=== PATIENT | female | born 1985 | race Caucasian/White ===

== ENCOUNTER 2022-12-24 19:23 | Emergency (ER) | payer OTHER, SELFPAY ==
[2022-12-24] VITALS (8 sets, daily range): BP systolic 97–156; BP diastolic 60–94; PULSE 82–110; RESP 22; O2SAT 95–99; BMI 42.3
--- NOTE | 2022-12-24 21:16 | ED.GENADULT ---
HPI - General Adult General Chief complaint: Back Injury/Pain Stated complaint: 7 months , sciatic nerve pain Time Seen by Provider: 12/24/22 21:06 History of Present Illness HPI narrative: 37 year old woman accompanied by family with concern of back pain. History of right-sided sciatica with ?back going out? multiple times in the last . This sciatica though lasted briefly early on in . Has been having some back aches during this now at approximately 29 weeks. Over the last 3 days though is now having shooting sharp pain down the right buttock and posterior right thigh about 2/3 of the thigh. wondering if a muscle relaxer would be helpful. has been doing her stretches as instructed last time. Related Data Home Medications Medication Instructions Recorded Confirmed aspirin 81 mg capsule 81 mg PO DAILY 12/24/22 12/24/22 citalopram 40 mg tablet 40 mg PO DAILY 12/24/22 12/24/22 prenat.vits,steve,[id number] .ROUTE 12/24/22 Allergies Allergy/AdvReac Type Severity Reaction Status Date / Time cefaclor [From Ceclor] Allergy Mild Hives Verified 12/24/22 19:40 ciprofloxacin [From Cipro] Allergy Mild Hives Verified 12/24/22 19:40 Sulfa (Sulfonamide Allergy Mild Hives Verified 12/24/22 19:40 Antibiotics) Review of Systems Status of ROS: Reports: 6 or more systems reviewed and unremarkable except as noted in History and below [facility] Social History Smoking Status: Former smoker Do you use any of these nicotine containing products: None Second hand tobacco smoke exposure: No How often do you have a drink containing alcohol: never AUDIT-C Alcohol total score: 0 Non-prescribed substance use: denies use Exam Narrative: Exam Narrative: pleasant. nad. breathing easily. lying slightly rotated to left side. quite uncomfortable with transitions. skin is warm and dry without indication of trauma. without midline back pain. no clear SI pain. a little sore to palpation on the mid right buttock and posterior thigh. somewhat positive SLR good strength to resisted dorsiflexion and plantar flexion at the ankle. well perfused. neg braxton's and hip compression. Const: Vital Signs, click to edit/add: Vital Signs - 24 hr 12/24/22 19:33 12/24/22 19:47 12/24/22 19:48 Pulse Rate 89 96 Pulse Rate [Pulse Oximeter] 110 H Respiratory Rate 22 Blood Pressure 134/94 H Blood Pressure [Le ft Upper Arm] 156/81 H Pulse Oximetry 98 98 99 Oxygen Delivery Me thod Room Air 12/24/22 20:00 12/24/22 20:02 12/24/22 20:15 Pulse Rate 89 88 86 Pulse Rate [Pulse Oximeter] Respiratory Rate Blood Pressure 114/67 Blood Pressure [Le ft Upper Arm] Pulse Oximetry 96 97 96 Oxygen Delivery Me thod 12/24/22 20:22 12/24/22 20:23 Pulse Rate 86 82 Pulse Rate [Pulse Oximeter] Respiratory Rate Blood Pressure 97/60 Blood Pressure [Le ft Upper Arm] Pulse Oximetry 97 95 Oxygen Delivery Me thod Documenting provider has reviewed patient's vital signs: yes Course Vital Signs Vital signs: Initial Vital Signs Temperature Source Temporal Artery Scan 12/24/22 19:33 Pulse Rate 110 H 12/24/22 19:33 Respiratory Rate 22 12/24/22 19:33 Blood Pressure 156/81 H 12/24/22 19:33 Blood Pressure Mean 106 H 12/24/22 19:33 Blood Pressure Position Sitting 12/24/22 19:33 Pulse Oximetry 98 12/24/22 19:33 Oxygen Delivery Method Room Air 12/24/22 19:33 Vital Signs Pulse Rate 110 H 12/24/22 19:33 Respiratory Rate 22 12/24/22 19:33 Blood Pressure 156/81 H 12/24/22 19:33 Pulse Oximetry 98 12/24/22 19:33 Oxygen Delivery Method Room Air 12/24/22 19:33 Pulse Rate 82 12/24/22 20:23 Respiratory Rate 22 12/24/22 19:33 Blood Pressure 97/60 12/24/22 20:22 Pulse Oximetry 95 12/24/22 20:23 Oxygen Delivery Method Room Air 12/24/22 19:33 Medical Decision Making MDM Narrative Medical decision making narrative: appears to have typical sciatic nerve bundle distribution of pain. no trauma. in the setting of I also think this more likely than lumbar spine in origin. did speak to ob oncall who approves plan/prescribed medications. at a minimum would benefit from a course of prednisone. see patient discharge plan. Discharge Plan Discharge Clinical Impression: Low back pain, Right sciatic nerve pain Patient Disposition: Home w/ Parent or Adult Condition: Stable Instructions: Sciatica (ED) Additional Instructions: Keep doing your sciatic stretches. Take the prednisone as 60 mg daily for 2 days then 40 mg daily for 4 days then 20 mg daily for 3 days Stay well-hydrated. Focus on fiber intake especially if taking opiate and maybe with addition of senna 1 - 2 times to stimulate bowels. Prednisone, [place], Flexeril from [facility]. Activity Level: No Restrictions Discharge Diet: Regular Prescriptions: No Action citalopram 40 mg tablet 40 mg PO DAILY prenat.vits,steve,[id number] .ROUTE aspirin 81 mg capsule 81 mg PO DAILY Follow Up/Referrals: Provider,Not a Local [Primary Care Provider] - Stand Alone Forms: [employer] Info Instructions
--- NOTE | 2022-12-24 21:26 | PC.OBNST ---
NST Note NST Note Start: 12/24/22 21:23 Freq: ONCE Status: Active Protocol: Document 12/24/22 21:24 [facility] (Rec: 12/24/22 21:26 [facility] [id number]) NST Note 2 Para (# of births) 1 EDC [birth year] Gestational Age In Weeks & Days 29 Weeks & 4 Days High Risk Factors History of Labor/ Delivery Patient Presented with Complaint(s) of Other If Pain, describe location Lower back, down right leg Other Complaints Sciatic pain Reactive Yes Appropriate for Gestational Age Yes RN Tiffani Harper, RN Date 12/24/22 Reactive Yes Appropriate for Gestational Age Yes HEMANT Wilburn RNC Date 12/24/22 OB NST charge Yes Complete NST Note via Write Note Yes The provider's electronic signature indicates the NST is reactive/appropriate for gestational age. *Note to provider: If an addendum is required, open the patient's chart and click on the note under the Nurse/Allied Health tab.
== END 2022-12-24 22:05 | disposition home or self-care (01) ==
PROVIDERS: Emergency Provider Family Medicine
DX: M54.50 Low back pain, unspecified (principal); M54.31 Sciatica, right side; Z3A.29 29 weeks gestation of pregnancy
CPT/HCPCS: 59025; 99283

== ENCOUNTER 2024-09-04 19:29 | Emergency (ER) | payer OTHER, SELFPAY ==
--- NOTE | 2024-09-04 19:41 | CRLHL7_ITS ---
For Patients: As a result of the Cures Act, medical imaging exams and procedure reports are released immediately into your electronic medical record. You may view this report before your referring provider. If you have questions, please contact your health care provider. Indication: Injury. Technique: Right great toe 3 views. Comparison: None. Findings/Impression: Bones: Alignment is normal. No fractures or bone lesions. No sign of acute injury. Joint spaces: Unremarkable. Soft tissues: Unremarkable. Dictated by Del Clark MD @ 09/04/2024 8:44:10 PM (Electronically Signed)
[2024-09-04 19:42] VITALS: BP 151/89; PULSE 80; RESP 16; TEMP 36.6; O2SAT 98; BMI 39.2
--- NOTE | 2024-09-04 20:33 | ED.LOWEXIN ---
HPI - Extremity Injury (Lower) General Date Seen: 09/04/24 Chief Complaint: Extremity Pain/Injury, Lower Stated Complaint: R big toe pain Time Seen by Provider: 09/04/24 19:44 Source: patient Mode of arrival: ambulatory Limitations: no limitations History of Present Illness HPI Narrative: Patient is a 39-year-old female presenting to the emergency department for right great toe pain. States about 19:00 she dropped a wound been shown to it. States there is swelling and bruising to it. States initially the toe was throbbing but that has since improved. States the tip of her toe feels numb at this time. Denies any other injuries. No other concerns noted. was able ambulate. Related Data Home Medications ?Medication ?Instructions ?Recorded ?Confirmed aspirin 81 mg capsule 81 mg PO DAILY 12/24/22 01/17/23 citalopram 40 mg tablet 40 mg PO DAILY 12/24/22 01/17/23 prenat.vits,steve,[id number] .Route 12/24/22 cyclobenzaprine 10 mg tablet 10 mg PO 3XD 01/17/23 01/17/23 hydrocodone 5 mg-acetaminophen 325 tab PO 01/17/23 mg tablet prednisone 20 mg tablet 20 mg PO BID 01/17/23 01/17/23 Previous Rx's ?Medication ?Instructions ?Recorded cyclobenzaprine 10 mg tablet 10 mg PO TID PRN muscle spasm #30 01/17/23 tabs hydrocodone 5 mg-acetaminophen 325 1 tab PO 3XD PRN Pain #20 tabs 01/17/23 mg tablet Allergies Allergy/AdvReac Type Severity Reaction Status Date / Time cefaclor (From Ceclor) Allergy Mild Hives Verified 12/24/22 19:40 ciprofloxacin (From Cipro) Allergy Mild Hives Verified 12/24/22 19:40 Sulfa (Sulfonamide Allergy Mild Hives Verified 12/24/22 19:40 Antibiotics) Review of Systems Narrative: Pertinent systems reviewed and were negative unless stated in HPI PFSH PFSH Social History Smoking Status: Former smoker Do you use any of these nicotine containing products: None Second hand tobacco smoke exposure: No How often do you have a drink containing alcohol: never AUDIT-C Alcohol total score: 0 Non-prescribed substance use: denies use Exam Narrative: Exam Narrative: Const: Well-nourished, Well-developed, in mild distress Eyes: PERRL, no conjunctival injection, and symmetrical lids HENT: Atraumatic external nose and ears. Moist mucous membranes. MSK: Mild swelling noted to the base of the right great toe with tenderness noted at that area too. Some bruising seen. Is able to move the toe. No pain noted to the rest of toes or foot. Skin: Warm, Dry. No rashes or lesions. Neuro: Normal Muscle tone, No focal neurological deficits. Psych: Awake, Alert, & Oriented x3. Appropriate mood and affect. Const: Vital Signs, click to edit/add: Vital Signs - 24 hr 09/04/24 19:42 Temperature 97.8 F Pulse Rate [Pulse Oximeter] 80 Respiratory Rate 16 Blood Pressure [Ri t Upper Arm] 151/89 H Pulse Oximetry 98 Oxygen Delivery Me thod Room Air Course Vital Signs Vital signs: Initial Vital Signs Temperature 97.8 F 09/04/24 19:42 Temperature Source Temporal Artery Scan 09/04/24 19:42 Pulse Rate 80 09/04/24 19:42 Respiratory Rate 16 09/04/24 19:42 Blood Pressure 151/89 H 09/04/24 19:42 Blood Pressure Mean 109 H 09/04/24 19:42 Blood Pressure Position Sitting 09/04/24 19:42 Pulse Oximetry 98 09/04/24 19:42 Oxygen Delivery Method Room Air 09/04/24 19:42 Vital Signs Temperature 97.8 F 09/04/24 19:42 Pulse Rate 80 09/04/24 19:42 Respiratory Rate 16 09/04/24 19:42 Blood Pressure 151/89 H 09/04/24 19:42 Pulse Oximetry 98 09/04/24 19:42 Oxygen Delivery Method Room Air 09/04/24 19:42 Temperature 97.8 F 09/04/24 19:42 Pulse Rate 80 09/04/24 19:42 Respiratory Rate 16 09/04/24 19:42 Blood Pressure 151/89 H 09/04/24 19:42 Pulse Oximetry 98 09/04/24 19:42 Oxygen Delivery Method Room Air 09/04/24 19:42 MDM - Extremity Injury (Lower) MDM Narrative Medical decision making narrative: Patient is a 39-year-old female presenting for right great toe pain. Will do an x-ray of the toe to look for signs of fractures. X-rays reviewed by myself and the radiologist shows no acute fractures. He be discharged. She is agreeable to this plan. Imaging Data Right great toe x-ray: Attestation: I have reviewed the pertinent imaging results. Radiologist's impression: Bones: Alignment is normal. No fractures or bone lesions. No sign of acute injury. Joint spaces: Unremarkable. Soft tissues: Unremarkable. Dictated by Del Clark MD @ 09/04/2024 8:44:10 PM Discharge Plan Discharge Clinical Impression: Contusion of toe Qualifiers: Encounter type: initial encounter Toe: great toe Damage to nail status: without damage Laterality: right Qualified Code(s): S90.111A - Contusion of right great toe without damage to nail, initial encounter Patient Disposition: Home, Self-Care Condition: Stable Instructions: Bone Bruise (ED) Additional Instructions: Take Tylenol and ibuprofen for pain. Return to emergency department for new or worsening symptoms. Prescriptions: No Action citalopram 40 mg tablet 40 mg PO DAILY prenat.vits,steve,[id number] .Route aspirin 81 mg capsule 81 mg PO DAILY cyclobenzaprine 10 mg tablet 10 mg PO 3XD hydrocodone-acetaminophen 5-325 mg tablet PO prednisone 20 mg tablet 20 mg PO BID hydrocodone-acetaminophen 5-325 mg Tablet 1 tab PO 3XD PRN (Reason: Pain) Qty: 20 0RF cyclobenzaprine 10 mg tablet 10 mg PO TID PRN (Reason: muscle spasm) Qty: 30 0RF Follow Up/Referrals: Sumi Ely MD [Primary Care Provider] - Stand Alone Forms: [employer] Info Instructions
== END 2024-09-04 20:57 | disposition home or self-care (01) ==
PROVIDERS: Emergency Provider Student in an Organized Health Care Education/Training Program; PCP Obstetrics & Gynecology
DX: S90.111A Contusion of right great toe without damage to nail, initial encounter (principal)
CPT/HCPCS: 73660; 99283

== ENCOUNTER 2025-07-21 19:08 | Emergency (ER) | payer OTHER, SELFPAY ==
--- OUTSIDE RECORDS SUMMARY | 2025-06-18 08:20 | XMS_ITS | Encounter Summary ---
Author Organization [facility] Address [address] [place] [address] Care Team Providers Care Licensing Court Magistrate Name Role Phone Loulou Martin APRN, CNP Primary Care Provid er Reason for Referral * Consult/Transfer Care (Routine) - New Request Specialty Diagnoses / Procedures Referred By Eileen monzon Referred To Contact Diagnoses Pain of right forearm Loulou Martin APRN, CNP [address] [place] [address] Phone: tel: fax: Referral ID Status Reason Start Date Expiration Date V isits Requested Visits Authorized [id number] New Request 06/18/2025 09/17/2026 1 1 Scheduling Instructions Your clinician has recommended an appointment with [facility]. You can quickly schedule your appointment by signing in to your online account at [email or web address] or through the text message you may have received. You can also make an appointment by calling [phone]. We also suggest you call your health insurance provider about your benefits and coverage for this appointment. Question Answer Appointment Urgency? Non-Urgent The patient should be seen by: Orthopaedic Non-Surgeon * Procedure/Equipment (Routine) - Incomplete Specialty Diagnoses / Procedures Referred By Eileen monzon Referred To Contact Diagnoses Encounter for screening mammogram for malignant neoplasm of breast Procedures MM Mammogram Screening Bilat W CAD Loulou Martin APRN, CNP [address] [place] [address] Phone: tel: fax: Referral ID Status Reason Start Date Expiration Date V isits Requested Visits Authorized [id number] Incomplete 06/18/2025 09/17/2026 1 1 * Consult/Transfer Care (Routine) - Closed Specialty Diagnoses / Procedures Referred By Contac t Referred To Contact Diagnoses Snoring Witnessed episode of apnea Loulou Martin APRN, CNP [address] [place] [address] Phone: tel: fax: Referral ID Status Reason Start Date Expiration Date Visits Re quested Visits Authorized [id number] Closed 06/18/2025 09/17/2026 1 1 Scheduling Instructions Your clinician has recommended an appointment with [facility]. This is not a sleep study order and must first be reviewed by a sleep specialist to determine the next steps. The review process looks at multiple factors including your insurance requirements, personal health history, and [place] [employer] guidelines. This order will be reviewed within 1 business day and sent to scheduling for one of the following appointments: - Consultation/Office Visit with a Sleep Medicine Specialist - Consultation/Office Visit with an Insomnia Specialist - Portable/Home Sleep Test If you do not hear from our scheduling staff within the next 7 days, please contact us at [phone] and select option 1. Question Answer Appointment Urgency Non-Urgent Sleep Service Requested Sleep Test Other Pertinent History None Previously Diagnosed SREEKANTH No Signs/Symptoms of SREEKANTH Excessive Daytime Sleepiness, Witnessed Episodes of Apnea, Habitual or Disruptive Snoring Comments Comments: Age/Sex: 39 y.o. / female Height: 01/09/23 : 5' 7 (1.702 m) Weight: 04/10/24 : 260 lb (117.9 kg) BMI: Estimated body mass index is 40.72 kg/m as calculated from the following: Height as of 01/09/23: 5' 7 (1.702 m). Weight as of 04/10/24: 260 lb (117.9 kg). Reason for Visit * Reason Comments Annual Exam Other Skin tag under bra l ine. Concerns about low blood sugar during the day (noted some dizziness, lightheadedness, and sweating). Noted snoring and reported that pt might stop breathing at night. Right arm soreness intermittently. Encounter Details Date Type Department Care Team (Late st Contact Info) Description 06/18/2025 9:20 AM CDT Office Visit [facility] [address] [place] [address] Loulou Martin APRN, CNP [address] [facility] [place] [address] Well woman exam with routine gynecological exam (Primary Dx); PATRICIA (generalized anxiety disorder) (HRC); Major depression in remission (HRC); Reactive airway disease with acute exacerbation, unspecified asthma severity, unspecified whether persistent (HRC); Screening for malignant neoplasm of cervix; Special screening examination for human papillomavirus (HPV); Encounter for screening mammogram for malignant neoplasm of breast; Screening, anemia, deficiency, iron; Screening for diabetes mellitus; Encounter for screening for lipoid disorders; Snoring; Witnessed episode of apnea; Pain of right forearm Social History Tobacco Use Types Packs/Day Years Used Date Smoking Tobacco: Former Cigarettes 0.2 3 1 09/20/2017 - 07/21/2021 Smokeless Tobacco: Never Tobacco Cessation:Counseling Given: Not Answered Alcohol Use Standard Drinks/Week Comments No 0 (1 standard drink = 0.6 oz pure alcohol) Sober since 11/2015. Adm 05/20/15 FVR for acute alcohol intoxication, multiple job losses, DUIs PHQ-2 Answer Date Recorded PHQ-2 Score 0 06/18/2025 Hunger Vital Sign Answer Date Recorded Within the past 12 months, y ou worried that your food would run out before you got the money to buy more. Sometimes true Within the past 12 months, t he food you bought just didn't last and you didn't have money to get more. Never true 06/2025 PRAPARE - Transportation Answer Date Re corded In the past 12 months, has l ack of transportation kept you from medical appointments or from getting medications? No 06/09 In the past 12 months, has l ack of transportation kept you from meetings, work, or from getting things needed for daily living? No 06/18/2025 Housing Stability Vital Sign Answer Damir e Recorded In the last 12 months, was t here a time when you were not able to pay the mortgage or rent on time? Yes 06/18/2025 In the past 12 months, how m any times have you moved where you were living? 0 06/18/2025 At any time in the past 12 m [facility], were you homeless or living in a group home (including now)? 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 Not on file Not on file N ot on file [employer] Not on file Not on file Not on file documented as of this encounter Last Filed Vital Signs Vital Sign Reading Time Taken Comments Blood Pressure 121/85 06/18/2025 9:08 AM CDT Pulse 74 06/18/2025 9:08 AM CDT Temperature - - Respiratory Rate - - Oxygen Saturation - - Inhaled Oxygen Concentration - - Weight 112.4 kg (247 lb 12.8 oz) 06/18/2025 8:58 AM CDT Height 170.2 cm (5' 7) 06/18/2025 8:58 AM CDT Body Mass Index 38.81 06/18/2025 8:58 AM CDT documented in this encounter Patient Instructions * Patient Instructions* Loulou Martin, LABOR OPERATOR, MARINE CONSULTANT - 06/18/2025 9:20 AM CDT VISIT SUMMARY: During your visit, we addressed your concerns about snoring, blood sugar fluctuations, right arm soreness, and a skin tag under your brow. We also performed routine screenings and discussed your current medications. YOUR PLAN: CERVICAL CANCER SCREENING AND HPV SCREENING: You are due for cervical cancer screening as you are approaching [age]. -We performed the cervical cancer screening today. Please review the results on your online account. ROUTINE GYNECOLOGICAL EXAMINATION: A routine gynecological examination is part of your preventativecare. -We completed your routine gynecological examination today. SUSPECTED SLEEP APNEA: You have reported loud snoring, possible apneic episodes, and daytime sleepiness, which began after becoming sober. -We have ordered a sleep study for you. -You are referred to the sleep department for further evaluation. SYMPTOMS OF HYPOGLYCEMIA (NOT DIABETES): You experience symptoms of low blood sugar if you do not eat for extended periods. Your current diet may lack sufficient protein and fat. -We will check your blood work for anemia, blood sugar, and cholesterol. -Include more protein and fat in your meals and snacks. -Try to eat every three hours to maintain stable blood sugar levels. RIGHT ARM PAIN, POSSIBLE BICEPS TENDON INJURY: You have intermittent right arm soreness, possibly due to a biceps tendon injury. -You are referred to orthopedics for evaluation of a possible biceps tendon injury. SKIN TAG UNDER BROW: You have a skin tag under your brow line that causes discomfort. -We will evaluate the skin tag and determine the appropriate removal method. UNSPECIFIED ASTHMA WITH ACUTE EXACERBATION: You received a pneumonia vaccination due to your asthmatic airway. -No additional action is needed at this time. GENERALIZED ANXIETY DISORDER AND DEPRESSION IN REMISSION: Your generalized anxiety disorder and major depression are in remission and well-managed on sertraline 50 mg daily. -Continue taking sertraline 50 mg daily. documented in this encounter Progress Notes * Loulou Martin APRN, CNP - 06/18/2025 9:20 AM CDT Amalia Allison [id number] SUBJECTIVE: AMALIA ALLISON is a 39 y.o. female who presents to the clinic for a routine physical exam. She is , with menarche at age 13. Menses are absent on Mirena IUD. She is sexually active. No concerns about STI's at this time. She denies dyspareunia, unusual vaginal discharge, or pelvic pain. Lastpap 2020. Denies history of abnormal paps. Patient reports that anxiety and depression are currently well managed on sertraline 50mg. She is happy to report that she has been sober for 9 years. She has a history of severe alcohol dependence, requiring admission to the hospital for various alcohol-related injuries and health problems. She has several additional concerns today. History of Present Illness She has a skin tag under her brow line that frequently catches and causes discomfort. She has concerns about snoring and potential sleep apnea. Her has observed that she snores loudly and appears to stop breathing during sleep. This issue began after she became sober, whereas previously she was a quiet sleeper. She experiences daytime sleepiness, often feeling tired and ableto nap easily, which she attributes to getting only five to six hours of sleep per night due to herbusy schedule with two young children at home. She has noticed fluctuations in her blood sugar levels, particularly feeling weak and shaky if she does not eat within five to six hours after breakfast. She typically eats a bagel with cream cheese in the morning and tries to bring snacks like trail mix, protein bars, and fruit snacks to work. Sheexperiences symptoms of low blood sugar, such as sweating and weakness, which improve after eating. She reports intermittent right arm soreness, which she attributes to holding her [id number] child. She recalls a specific incident about four months ago when her arm became very sore and developed a hard 'Gen' bump, suggesting a possible muscle strain or injury. The soreness persists, especially when holding her child, who weighs 30 pounds. PAST MEDICAL HISTORY: Past Medical History[1] PAST SURGICAL HISTORY: Past Surgical History[2] DRUG ABUSE WORKER HISTORY: OB History 2 Para 2 Term 1 1 AB 0 Living 2 SAB 0 IAB 0 Ectopic 0 Multiple Live Births 2 No LMP recorded (lmp unknown). (Menstrual status: IUD). MEDICATIONS: Outpatient Medications Prior to Visit Medication Sig ALBUterol sulfate HFA (VENTOLIN HFA) 108 (90 Base) MCG/ACT inhaler Inhale 1-2 Puffs every 4 hours as needed for Wheezing. (Patient not taking: Reported on 06/18/2025) levonorgestrel (MIRENA) 20 MCG/DAY IUD 1 Each by Intrauterine route continuous. multivitamin (THERAGRAN) tablet Take 1 Tablet by mouth daily. sertraline (ZOLOFT) 50 MG tablet TAKE 1 TABLET BY MOUTH EVERY DAY No facility-administered medications prior to visit. ALLERGIES: Allergies Allergen Reactions Cefaclor Hives HIVES: Hives, Tolerated ceftriaxone 04/23/20: ok to use 3rd generation cephalosporins or higher. Should have plenty of options in penicillin family for coverage. Ciprofloxacin Hives Sulfa Antibiotics Hives HIVES: Hives, FAMILY HISTORY: Family History[3] SOCIAL HISTORY: Social History Social History Narrative The patient is engaged. 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 Has two boys and 4 step-kids,. Complete ROS negative with any exceptions listed: above. OBJECTIVE VITALS: BP 121/85 (BP Location: Left Arm, BP Cuff Size: Regular) Pulse 74 Ht 5' 7 (1.702 m) Wt 247 lb 12.8 oz (112.4 kg) LMP (LMP Unknown) No BMI 38.81 kg/m?? CONSTITUTIONAL; Well-developed, well nourished female, in NAD. HEENT: Head AT/NC. External ears normal. TMs clear, bony landmarks visible. Nares patent, turbinates without lesions or drainage. Oropharynx non- erythematous. Uvula midline. Dentition in good condition. NECK: Supple, thyroid without enlargement or nodules. No cervical lymphadenopathy. LUNGS: Symmetrical expansion, CTA in all louis bilaterally. HEART: Regular rate and rhythm. No murmurs. ABDOMEN: Soft, non-tender, no guarding or masses. No HSM. EXTREMITIES: Subtle Gen deformity right forearm. No edema. Strong and equal peripheral pulses SKIN: Inferior to left breast, skin-colored pedunculated lesion measuring approx 2mm. No obvious rashes or suspicious lesions. PSYCH: Well-oriented. Appropriate mood and affect. NEURO: Speech and gait are normal. BREASTS: Large size, symmetrical. No nipple discharge. No palpable masses, tenderness, lesions, dimpling, or retractions. LYMPH: No axillary lymphadenopathy. GENITALIA: Labia without lesions, normal hair distribution. Vaginal vault pink with clear discharge. No cervical lesions. No CMT. IUD strings not visible. No adnexal masses or tenderness. Uterus anteverted. RECTAL: No external hemorrhoids noted. PROCEDURE: Verbal informed consent. Lesion frozen with three cycles of liquid nitrogen using 15 second freeze-thaw time. Patient tolerated the procedure without complication. ASSESSMENT/PLAN: Assessment & Plan Well woman exam with routine gynecological exam - Labs: Hgb, Glucose, lipid profile - Cervical Cancer Screening: Due. Collected. - Influenza ccIIV3 6 months+ (FLUCELVAX) - PCV20 ([id number]) - Mammogram: Due at 40, referred. - Follow up yearly. PATRICIA (generalized anxiety disorder) (HRC)/Major depression in remission (HRC) - sertraline (ZOLOFT) 50 MG tablet; Take 1 Tablet (50 mg) by mouth daily. Reactive airway disease with acute exacerbation, unspecified asthma severity, unspecified whether persistent (HRC): Stable Suspected sleep apnea Reports loud snoring and possible apneic episodes with daytime sleepiness. Symptoms began after becoming sober. - Order sleep study. - Refer to sleep department for further evaluation. Symptoms of hypoglycemia (not diabetes) Experiences hypoglycemic symptoms if not eating for extended periods. Symptoms improve with food intake. Current diet may lack sufficient protein and fat. - Check blood work for anemia, blood sugar, and cholesterol. - Advise to include protein and fat in meals and snacks. - Recommend eating every three hours to maintain stable blood sugar levels. Right arm pain, possible biceps tendon injury Intermittent right arm soreness with 'Gen' deformity, possibly due to biceps tendon injury. - Refer to orthopedics for evaluation of possible biceps tendon injury. Skin tag under breast - Lesion frozen, see Procedure notes above - Aftercare instructions given. Follow up prn Orders Placed This Encounter Lipid Panel & Direct LDL (if Needed) Glucose Hemoglobin, Blood MM Mammogram Screening Bilat W CAD Influenza ccIIV3 6 months+ (FLUCELVAX) PCV20 ([id number]) HPV Genotyping PCR (Cervical/Endocervical ONLY) with Reflex Cytology (Pap) if Indicated Cervical Cancer Screening; Obtain [facility] Orthopaedic Consult Adult/Peds sertraline (ZOLOFT) 50 MG tablet Counseling: Discussed the importance of safe sexual practices with use of barrier contraception, regular exercise, eating a healthy, well-balanced diet, and sun protection. Loulou Martin APRN, CNP [facility] NB: A voice recognition dictation system was used for this note. Please excuse any typographical errors. [1] Past Medical History: Diagnosis Date Abnormal Pap smear 2007, 05/2009 Colpo neg, HPV neg 2009 Adjustment disorder with anxiety ([facility]) 06/03/2013 Alcoholic ketoacidosis 05/20/2015 Alcoholism ([facility]) 05/20/2015 Admitted to [facility] for EtOH for detox Allergic rhinitis Anxiety ([facility]) Asthma ([facility]) Immunization, other disease Pap smear abnormality of cervix STD (sexually transmitted disease) ([facility]) 2007 Chlamydia - Rx'd Substance abuse ([facility]) Urinary tract infection Varicella [2] Past Surgical History: Procedure Laterality Date CYST INCISION AND DRAINAGE INNER EAR SURGERY MIDDLE EAR SURGERY Left x 3 TONSILLECTOMY TYMPANOSTOMY TUBE PLACEMENT [3] Family History Problem Relation Name Age of Onset High Cholesterol Mother Alesha Mckeon Adopted Mother Alesha Mckeon Diabetes Mother Alesha Mckeon Stroke Father Lazaro Hensley Diabetes Maternal Grandmother Maryjo Hensley Stroke Maternal Grandmother Maryjo Hensley Stroke Maternal Grandfather Grandma Stroke Paternal Grandfather Grandfather documented in this encounter Plan of Treatment Upcoming Encounters Date Type Department Care Team (Late st Contact Info) Description 08/23/2025 6:00 PM RIVET CATCHER Appointment [facility] [address] [place] [id number] 09/06/2025 7:40 AM RIVET CATCHER [facility]ment [facility] [address] [address] [address] [place] [address] 09/07/2025 9:00 AM RIVET CATCHER Telemedicine Specialty Center [facility] Pulmonary Medicine [address] [place] [address] Yamileth Livingston MBBS [address] [place] [address] [address] [place] [phone] 06/24/2026 7:20 AM CDT Appointment [facility] [address] [place], [place] [id number] Loulou Martin, BRIELLE, MARINE CONSULTANT [address] [place] [address] Scheduled Orders Name Type Priority Associated Diagnoses Orde r Schedule MM Mammogram Screening Bilat W CAD Imaging New Routine Encounter for screening mammogram for malignant neoplasm of breast Expected: 06/18/2025 (Approximate), Expires: 06/18/2026 Scheduled Referrals Name Type Priority Associated Diagnoses Orde r Schedule Sleep Services Referral Routine Snoring Witnessed episode of apnea Ordered: 06/18/2025 Orthopaedic Consult Adult/Peds Referral Routine Pain of right forearm Ordered: 06/18/2025 documented as of this encounter Procedures Procedure Name Priority Date/Time Associated Diagnosis Comments HPV WITH 16 18 GENOTYPING, CERVICAL/ENDOCERVI JENNIFER Routine 06/18/2025 9:57 AM CDT Special screening examination for human papillomavirus (HPV) documented in this encounter Results * Hemoglobin, Blood (06/18/2025 10:09 AM CDT) Hemoglobin 14.2 12.0 - 15.5 g/dL 06/18/2025 10:12 AM CDT [facility] Blood Venipuncture / Unknown 06/18/2025 10:09 AM CDT 06/18/2025 10:09 AM CDT us Loulou Martin APRN, MARINE CONSULTANT LAB_1 Sangeeta l Result [facility] CLIA: [id number] [address] [place] [address], [facility] * Glucose (06/18/2025 10:09 AM CDT) Glucose 81 70 - 100 mg/dL 06/18/2025 12:[address] [facility] Comment:The given reference range is for the fasting state. Non-fasting reference range for glucose is 70 - 180 mg/dL. Hours Fasting 12.0 8 - 12 Hours 06/18/2025 12:[address] [facility] Blood Venipuncture / Unknown 06/18/2025 10:09 AM CDT 06/18/2025 10:09 AM CDT Loulou Martin APRN, [place]O LAB_1 Sangeeta l Result Performing Organization Address [facility] Co de Phone Number [facility] CLIA: [id number] [address] [place] [address], [facility] * Lipid Panel & Direct LDL (if Needed) (06/18/2025 10:09 AM CDT) [facility] Cholesterol 178 0 - 199 mg/dL 06/18/2025 12:[address] [facility] Triglyceride 130 <=149 mg/dL 06/18/2025 12:[address] [facility] HDL Cholesterol 48 >=40 mg/dL 12:[address] [facility] LDL, Calculated 104 <130 mg/dL 12:[address] [facility] Non HDL Chol, Calculated 130 <=159 mg/dL 06/18/2025 12:[address] [facility] Cholesterol/HDL Ratio 3.7 <=5.0 06/18/2025 12:[address] [facility] Hours Fasting 12.0 8 - 12 Hours 06/18/2025 12:[address] [facility] Blood Venipuncture / Unknown 06/18/2025 10:09 AM CDT 06/18/2025 10:09 AM CDT Loulou Martin APRN, CNP LAB_1 Sangeeta l Result Performing Organization Address [facility]/ZIP Co de Phone Number [facility] CLIA: [id number] [place] [address], [facility] * HPV Genotyping PCR (Cervical/Endocervical ONLY) with Reflex Cytology (Pap) if Indicated (59:57 AM CDT) HPV High Risk Type 16 PCR Not Detected Not detected 06/22/2025 2:13 PM [facility] HPV High Risk Type 18 PCR Not Detected Not Detected 06/22/2025 2:13 PM [facility] HPV High Risk Other Than 16/18 Not Detected Not detected 06/22/2025 2:13 PM [facility] Cervical Broom ENTIRE ENDOCERVIX / Unknown 06/18/2025 9:57 AM CDT 06/18/2025 1:14 PM CDT [facility] - 06/22/2025 2:13 PM CDT Cervical cancer screening tests, including Pap and HPV tests, are screening tools used to aid in the detection of cervical and vaginal cancers and their precursor lesions. False-negative and false-positive results may occur. These tests are not diagnostic. Clinical correlation and follow-up per current screening guidelines are recommended. The Isabel HPV test is a qualitative in vitro test for the detection of Human Papillomavirus in [facility] patient specimens. The test utilizes amplification of target DNA by Polymerase Chain Reaction (PCR) and nucleic acid hybridization for the detection of 14 high-risk (HR) HPV types. The assay tests for high risk types (16, 18, 31, 33, 35, 39, 45, 51, 52, 56, 58, 59, 66, and 68). us Loulou Martin APRN, MARINE CONSULTANT LAB_1 Sangeeta schaffer Result [facility] CLIA: [id number] [address] [place] [address] documented in this encounter Visit Diagnoses Diagnosis Well woman exam with routine gynecological exam- Primary Routine gynecological examination PATRICIA (generalized anxiety disorder) (HRC) Generalized anxiety disorder Major depression in remission (HRC) Major depressive disorder, single episode in full remission Reactive airway disease with acute exacerbation, unspecified asthma severity, unspecified whether persistent (HRC) Screening for malignant neoplasm of cervix Screening for malignant neoplasm of the cervix Special screening examination for human papillomavirus (HPV) Encounter for screening mammogram for malignant neoplasm of breast Other screening mammogram Screening, anemia, deficiency, iron Screening for iron deficiency anemia Screening for diabetes mellitus Encounter for screening for lipoid disorders Screening for lipoid disorders Snoring Other dyspnea and respiratory abnormality Witnessed episode of apnea Pain of right forearm Pain in limb documented in this encounter Care Teams Licensing Court Magistrate Relationship Specialty Start Date End Date Loulou Martin, BRIELLE, MARINE CONSULTANT [address] [place] [address] PCP - General Nurse Practitioner 10/31/16 documented as of this encounter
--- OUTSIDE RECORDS SUMMARY | 2025-06-18 09:00 | XMS_ITS | Encounter Summary ---
Author Organization [facility] Address [address] [place] [address] Care Team Providers Care Retail Agent Name Role Phone Loulou Martin APRN, CNP Primary Care Provid er Encounter Details Date Type Department Care Team (Late st Contact Info) Description 06/18/2025 10:00 AM CDT Lab Visit [facility] [address] [place] [address] Encounter for screening for lipoid disorders; Screening for diabetes mellitus; Screening, anemia, deficiency, iron Social History Tobacco Use Types Packs/Day Years Used Date Smoking Tobacco: Former Cigarettes 0.2 3 1 09/20/2017 - 07/21/2021 Smokeless Tobacco: Never Alcohol Use Standard Drinks/Week Comments No 0 [...] any time in the past 12 m onths, were you homeless or living in a half-way (including now)? 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 Not on file Not on file Not on file documented as of this encounter Plan of Treatment Upcoming Encounters Date Type Department Care Team (Late st Contact Info) Description 08/23/2025 6:00 PM BENCH WORKER BINDING Appointment [facility] [address] [place] [address] 09/06/2025 7:40 AM BENCH WORKER BINDING Appointment [facility] M[facility] at [facility] [address] [address] 09/07/2025 9:00 AM BENCH WORKER BINDING Telemedicine Specialty Center [facility] Pulmonary Medicine [address] [place] [address] Yamileth Livingston MBBS [address] [place] [address] [address] [place] [phone] 06/24/2026 7:20 AM CDT Appointment [facility] [address] [place] [address] Loulou Martin APRN, PLASTIC PARTS DESIGNER [address] [place] [phone] documented as of this encounter Procedures Procedure Name Priority Date/Time Associated Diagnosis Comments LIPID PANEL & DIRECT LDL (IF NEEDED) Routine 06/18/2025 10:09 AM CDT Encounter for screening for lipoid disorders HEMOGLOBIN, BLOOD Routine 06/18/2025 10: 09 AM CDT Screening, anemia, deficiency, iron GLUCOSE Routine 06/18/2025 10:09 AM CDT Screening for diabetes mellitus documented in this encounter Results * Hemoglobin, Blood (06/18/2025 10:09 AM CDT) Hemoglobin 14.2 12.0 - 15.5 g/dL 06/18/2025 10:12 AM CDT [facility] Blood Venipuncture / Unknown 06/18/2025 10:09 AM CDT 06/18/2025 10:09 AM CDT us Loulou Martin APRN, PLASTIC PARTS DESIGNER LAB_1 Sangeeta l Result [facility] CLIA: [id number] [address] [place] [phone] * Glucose (06/18/2025 10:09 AM CDT) Glucose 81 70 - 100 mg/dL 06/18/2025 12:32 PM CDT [facility] Comment:The given reference range is for the fasting state. Non-fasting reference range for glucose is 70 - 180 mg/dL. Hours Fasting 12.0 8 - 12 Hours 06/18/2025 12:32 PM CDT [facility] Blood Venipuncture / Unknown 06/18/2025 10:09 AM CDT 06/18/2025 10:09 AM CDT Loulou Martin APRN, CNP LAB_1 Sangeeta l Result Performing Organization Address [facility] de Phone Number [facility] CLIA: [id number] [address] [place] [phone] * Lipid Panel & Direct LDL (if Needed) (06/18/2025 10:09 AM CDT) [facility] Cholesterol 178 0 - 199 mg/dL 06/18/2025 12:32 PM [facility] Triglyceride 130 <=149 mg/dL 06/18/2025 12:32 PM [facility] HDL Cholesterol 48 >=40 mg/dL 12:32 PM [facility] LDL, Calculated 104 <130 mg/dL 12:32 PM [facility] Non HDL Chol, Calculated 130 <=159 mg/dL 06/18/2025 12:32 PM [facility] Cholesterol/HDL Ratio 3.7 <=5.0 06/18/2025 12:32 PM [facility] Hours Fasting 12.0 8 - 12 Hours 06/18/2025 12:32 PM [facility] Blood Venipuncture / Unknown 06/18/2025 10:09 AM CDT 06/18/2025 10:09 AM CDT Loulou Martin APRN, CNP LAB_1 Sangeeta l Result Performing Organization Address [facility] de Phone Number [facility] CLIA: [id number] [address] [place] [phone] documented in this encounter Visit Diagnoses Diagnosis Encounter for screening for lipoid disorders Screening for lipoid disorders Screening for diabetes mellitus Screening, anemia, deficiency, iron Screening for iron deficiency anemia documented in this encounter Care Teams Retail Agent Relationship Specialty Start Date End Date Loulou Martin APRN, CNP [address] [place] [address] [place] [address] PCP - General Nurse Practitioner 10/31/16 documented as of this encounter
--- OUTSIDE RECORDS SUMMARY | 2025-07-21 19:10 | XMS_ITS | Encounter Summary ---
Author Organization [facility] Address [address] [place] [address] Care Team Providers Care Screen Printing Machine Operator Name Role Phone Loulou Martin APRN, CNP Primary Care Provid er Encounter Details Date Type Department Care Team (Late st Contact Info) Description 06/30/2025 E-Visit [facility] [address] [place] [address] Bianca, [place] [address] Social History Tobacco Use Types Packs/Day Years [...] any time in the past 12 m ont, were you homeless or living in a care home (including now)? 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 Not on file Not on file Not on file documented as of this encounter Plan of Treatment Upcoming Encounters Date Type Department Care Team (Late st Contact Info) Description 08/23/2025 6:00 PM INSPECTOR ELEVATORS Appointment [facility] [address] [place] [address] 09/06/2025 7:40 AM INSPECTOR ELEVATORS Appointment [facility] Mammography at [facility] and Specialty Center [address] [address] 09/07/2025 9:00 AM INSPECTOR ELEVATORS Telemedicine Specialty Center 393 Pulmonary Medicine [facility] [place] [address] Yamileth Livingston MBBS [address] [facility] [address] [place] [address] 06/24/2026 7:20 AM CDT Appointment [facility] Medicine [address] [place] [address] Loulou Martin APRN, CNP [address] [place] [facility] [address] documented as of this encounter Visit Diagnoses Not on filedocumented in this encounter Care Teams Screen Printing Machine Operator Relationship Specialty Start Date End Date Loulou Martin APRN, [place]O [address] [place] [facility] [place] [address] PCP - General Nurse Practitioner 10/31/16 documented as of this encounter
--- OUTSIDE RECORDS SUMMARY | 2025-07-21 19:10 | XMS_ITS | Encounter Summary ---
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 N ot on file [employer] world [employer] Not on file Not on file Not on file documented as of this encounter Plan of Treatment Upcoming Encounters Date Type Department Care Team (Late st Contact Info) Description 08/23/2025 6:00 PM VACUUM CONDITIONER OPERATOR Appointment [facility] [address] [place] [address] 09/06/2025 7:40 AM VACUUM CONDITIONER OPERATOR Appointment [facility] Mamm[facility] at [facility] and Specialty Center [place] [address] [address] [address] [place] [address] 09/07/2025 9:00 AM VACUUM CONDITIONER OPERATOR Telemedicine Specialty Center [address] Pulmonary Medicine [address] [place] [address] Yamileth Livingston MBBS [address] [place] [address] [address] [place] [address] 06/24/2026 7:20 AM CDT Appointment [facility] [address] [place], [place] [id number] Loulou Martin APRN, STOPPER MAKER [address] [address] [facility] [phone] documented as of this encounter Visit Diagnoses Not on filedocumented in this encounter Care Teams Refractory Repairer Relationship Specialty Start Date End Date Loulou Martin APRN, STOPPER MAKER [address] [place] [phone] PCP - General Nurse Practitioner 10/31/16 documented as of this encounter
--- OUTSIDE RECORDS SUMMARY | 2025-07-21 19:10 | XMS_ITS | Clinical Summary ---
Author Organization [facility] Address [facility] [place] [address] Care Team Providers Care Archivist Military History Name Role Phone Veronica Loulou C LABORER BITUMINOUS PAVING Primary Care Provider Allergies Active Allergy Reactions Criticality Noted Date Comments Cefaclor Hives 05/20/2015 Ciprofloxacin Hives 05/20/2015 Sulfa Antibiotics Hives 05/20/2015 Medications Vit-Fe Fumarate-FA ( MULTIVITAMIN W/IRON) 27-0.8 MG tablet Take 1 tablet by mouth daily Active citalopram (CELEXA) 40 MG tablet Take 40 mg by mouth daily Active labetalol (NORMODYNE) 200 MG tablet Take 200 mg by mouth 2 times daily Active docusate sodium (COLACE) 100 MG capsuleIndicati ons:Indication for care in labor or delivery Take 1 capsule (100 mg) by mouth daily 30 capsule 02/17/20 23 Active hydrocortisone, Perianal, (ANUSOL-HC) 2.5 % creamIndication s:Indication for care in labor or delivery Place rectally 3 times daily as needed for hemorrhoids 30 g 02/17/20 23 Active ibuprofen (ADVIL/MOTRIN) 800 MG tabletIndicatio ns:Indication for care in labor or delivery Take 1 tablet (800 mg) by mouth every 6 hours as needed for other (cramping) 40 tablet 1 02/17/20 23 Active lanolin ointmentIndicat ions:Indication for care in labor or delivery Apply topically every hour as needed for other (sore nipples) 7 g 3 02/17/20 23 Active desogestrel-eth inyl estradiol (APRI) 0.15-30 MG-MCG per tablet Take 1 tablet by mouth daily for 3 days 3 tablet 0 07/28/20 15 022 Discontinued Active Problems Problem Noted Date Diagnosed Date Gestational hypertension 02/16/2023 Indication for care in labor or delivery 023 premature rupture of membranes (PPROM) delivered, current hospitalization 12/23/2021 Encounter for triage in patient 022 Depressive disorder 12/22/2021 Depressive disorder 12/22/2021 Depressive disorder 12/22/2021 Encounter for triage in patient 022 Alcoholic ketoacidosis 05/20/2015 Immunizations Immunization Administration Dates Next Due Rhogam 12/10/2022,12/15/2021 Social History Tobacco Use Types Packs/Day Years Used Date Smoking Tobacco: Never Smokeless Tobacco: Never Tobacco Cessation:Counseling Given: Not Answered Alcohol Use Standard Drinks/Week Comments Not Currently 21 (1 standard drink = 0.6 oz pu re alcohol) Rumely Depression Scale Answer Date Recorded Last EPDS Total Score Not on file 02/16/2023 The thought of harming myself has occurred to me . Never 02/16/2023 Adolescent Education Answer Date Record ed Getting School Help Needed Not on file 06/23 Comments No Sex and Gender Information Value Date Recorded Sex Assigned at Not on file Legal Sex Female 3:22 AM LAPIDARIST Gender Identity Not on file Sexual Orientation Not on file Last Filed Vital Signs Vital Sign Reading Time Taken Comments Blood Pressure 142/86 02/17/2023 4:00 PM CDT Pulse 80 02/17/2023 4:00 PM CDT Temperature 36.6 C (97.8 F) 02/17/2023 8:42 AM CDT Respiratory Rate 16 02/17/2023 4:00 PM CDT Oxygen Saturation 98% 02/15/2023 7:46 PM CDT Inhaled Oxygen Concentration - - Weight 112.9 kg (249 lb) 12/22/2021 7:09 PM CDT Height 170.2 cm (5' 7) 12/22/2021 7:09 PM CDT Body Mass Index 39 12/22/2021 7:09 PM CDT Plan of Treatment Health Maintenance Due Date Last Done Comments ADVANCE CARE PLANNING 1985 ANNUAL REVIEW OF HM ORDERS 1985 MAMMO SCREENING 1985 HEPATITIS C SCREENING 2003 PAP 2006 YEARLY PREVENTIVE VISIT 10/18/2021 10/18/19 21, 10/15/2019, 07/05/2017 PHQ-2 (once per calendar year) 2024 COVID-19 VACCINE ( season) 2025 09/13/2021, 01/17/2021, 12/27/2020 INFLUENZA VACCINE (#1) 2025 , 06/14/2022, 08/07/2021, Additional history exists LIPID 2025 DIABETES SCREENING 02/17/2026 02/17/2023, 0 02/16/2023, 02/15/2023, Additional history exists DTAP/TDAP/TD VACCINE (9 - Td or Tdap) 12/10/2032 12/10/2022, 03/30/2012, 04/08/2009, Additional history exists ZOSTER VACCINE (1 of 2) 2035 MENINGITIS VACCINE Aged Out 05/02/2004 No longer eligible based on patient's age to complete this topic HPV VACCINE Completed 01/10/2009, 06/10, 04/29/2008 HEPATITIS B VACCINE Completed 07/05/2017, 04/15/2000, 01/26/2000 PNEUMOCOCCAL VACCINE: PEDIATRICS (0 to 5 YEARS) AND AT-RISK PATIENTS (6 to 49 YEARS) Aged Out 05/19/2020 No longer eligible based on patient's age to complete this topic HIV SCREENING Completed 02/15/2023, 08/04/2021 Procedures Procedure Name Priority Date/Time Associated Diagnosis Comments COMPREHENSIVE METABOLIC PANEL Routine 02/17/2023 10:11 AM CDT HIV 1&2 ANTIBODY (EXTERNAL RESULT) Routine 08/04/2021 9:00 AM LAPIDARIST from Last 3 Months or Most Recently Relevant to Health Maintenance Results * (ABNORMAL) Comprehensive metabolic panel (02/17/2023 10:11 AM CDT) Sodium 138 136 - 145 mmol/L 02/17/2023 10:38 AM CDT LABORATORY Potassium 4.4 3.4 - 5.3 mmol/L 02/17/2023 10:38 AM CDT LABORATORY Chloride 105 98 - 107 mmol/L 02/17/2023 10:38 AM CDT LABORATORY Carbon Dioxide (CO2) 24 22 - 29 mmol/L 02/17/2023 10:38 AM CDT LABORATORY Anion Gap 9 7 - 15 mmol/L 02/17/2023 10:38 AM CDT LABORATORY Urea Nitrogen 6.7 6.0 - 20.0 mg/dL 02/17/2023 10:38 AM CDT LABORATORY Creatinine 0.78 0.51 - 0.95 mg/dL 02/17/2023 10:38 AM CDT LABORATORY Calcium 8.8 8.6 - 10.0 mg/dL 02/17/2023 10:38 AM CDT LABORATORY Glucose 85 70 - 99 mg/dL 02/17/2023 10:38 AM CDT LABORATORY Alkaline Phosphatase 147(H) 35 - 104 U/L 02/17/2023 10:38 AM CDT LABORATORY AST 36(H) 10 - 35 U/L 02/17/2023 10:38 AM CDT LABORATORY ALT 20 10 - 35 U/L 02/17/2023 10:38 AM CDT LABORATORY Protein Total 5.4(L) 6.4 - 8.3 g/dL 02/17/2023 10:38 AM CDT LABORATORY Albumin 2.8(L) 3.5 - 5.2 g/dL 02/17/2023 10:38 AM CDT LABORATORY Bilirubin Total <0.2 <=1.2 mg/dL 02/17/2023 10:38 AM CDT LABORATORY GFR Estimate >90 >60 mL/min/1.7 3m2 02/17/2023 10:38 AM CDT LABORATORY Comment:eGFR calculated usin 2020 CKD-EPI equation. Blood STRUCTURE OF RIGHT HAND / Unknown Venipuncture / Unknown 02/17/2023 10:11 AM CDT 02/17/2023 10:16 AM CDT us Angely Lackey MD LAB - BLOOD ORDERABLES Fi nal Result [facility] [address] [facility] Lab (1st floor, no room number) [place] [address], [facility] [phone] * HIV-1 Antibody (External Result) (08/04/2021 9:00 AM LAPIDARIST) HIV 1&2 Antibody (External) Negative Nonreactive [facility] 08/04/2021 9:00 AM LAPIDARIST us Patient Reported LAB - HIM EXTERNAL RESULT Final Result [facility] [address] [place] [address], [facility] [phone] from Last 3 Months or Most Recently Relevant to Health Maintenance Insurance [facility] [id number] [facility] [place] [id number] [facility] [place] [id number] [facility] Advance Directives For more information, please contact: [phone] * Full Code (Latest Code Status on File) Date Activated Date Inactivated Comments 02/15/2023 12:30 AM 02/16/2023 2:25 AM All basic an d advanced life-sustaining interventions are performed as appropriate Question Answer Comments Code status determined by: Discussion with patie nt/ legal decision maker * Full Code Date Activated Date Inactivated Comments 12/23/2021 5:46 AM 12/25/2021 6:37 PM All basic an d advanced life-sustaining interventions are performed as appropriate Question Answer Comments Code status determined by: Discussion with patie nt/ legal decision maker * Full Code Date Activated Date Inactivated Comments 05/22/2015 9:01 AM 03/09/2021 6:19 AM * Full Code Date Activated Date Inactivated Comments 05/20/2015 11:47 PM 05/22/2015 9:01 AM Care Teams Archivist Military History Relationship Specialty [place] [address] [place] [facility] [place] [address] PCP - General 04/17/18
--- OUTSIDE RECORDS SUMMARY | 2025-07-21 19:10 | XMS_ITS | Encounter Summary ---
Author Organization [facility] Address [address] [place] [address] Care Team Providers Care Shop Hand Name Role Phone Loulou Martin APRN, CNP Primary Care Provid er Reason for Referral * Procedure/Equipment (Routine) - Authorized Specialty Diagnoses / Procedures Referred By Contpriyanka t Referred To Contact Diagnoses SREEKANTH (obstructive sleep apnea) Procedures Sleep Diagnostic Tests: HST Loulou Martin APRN, CNP [address] [place] [address] Phone: tel: fax: Referral ID Status Reason Start Date Expiration Date V isits Requested Visits Authorized [id number] Authorized 06/22/2025 09/21/2026 1 1 Encounter Details Date Type Department Care Team (Late st Contact Info) Description 06/22/2025 Notes/Orders [facility] [address] [place] [address] Loulou Martin APRN, CNP [address] [facility] [place] [address] SREEKANTH (obstructive sleep apnea) (Primary Dx) Social History Tobacco Use Types Packs/Day Years [...] any time in the past 12 m [facility], were you homeless or living in a alf (including now)? 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 [employer] Not on file Not on file Not on file documented as of this encounter Plan of Treatment Upcoming Encounters Date Type Department Care Team (Late st Contact Info) Description 08/23/2025 6:00 PM COBOL PROGRAMMER Appointment Specialty Center [address] [place] [address] 09/06/2025 7:40 AM COBOL PROGRAMMER Appointment [facility] Mammography at [facility] and Specialty Center [address] [address] [place] [address] 09/07/2025 9:00 AM COBOL PROGRAMMER Telemedicine Specialty Center 393 Pulmonary Medicine [address] [place] [address] Yamileth Livingston MBBS [address] [place] [address] [address] [place] [phone] 06/24/2026 7:20 AM CDT Appointment [facility] Medicine [address] [place] [address] Loulou Martin APRN, SHEET ROCK FINISHER [address] [place] [address] Scheduled Orders Name Type Priority Associated Diagnoses Orde r Schedule Sleep Diagnostic Tests: HST Sleep Study Routine SREEKANTH (obstructive sleep apnea) 1 Occurrences starting 06/22/2025 documented as of this encounter Visit Diagnoses Diagnosis SREEKANTH (obstructive sleep apnea)- Primary Obstructive sleep apnea (adult) (pediatric) documented in this encounter Care Teams Shop Hand Relationship Specialty Start Date End Date Loulou Martin APRN, SHEET ROCK FINISHER [address] [place] [address] PCP - General Nurse Practitioner 10/31/16 documented as of this encounter
--- OUTSIDE RECORDS SUMMARY | 2025-07-21 19:10 | XMS_ITS | Encounter Summary ---
Author Organization [facility] Address [facility] [place] [address] Care Team Providers Care Hand Drawer In Helper Name Role Phone Loulou Martin [facility] CONSULTANT Primary Care Provider [phone] Encounter Details Date Type Department Care Team (Late st Contact Info) Description 11/22/2022 MyC Medical Advice Initial Department [address] [place] [phone] Amrita Valenzuela Social History Tobacco Use Types Packs/Day Years Used Date Smoking Tobacco: Never Smokeless Tobacco: Never Alcohol Use Standard Drinks/Week Comments Not Currently 21 (1 standard drink = 0.6 oz pu re alcohol) [place] Depression Scale Answer Date Recorded Last EPDS Total Score Not on file 12/23/2021 The thought of harming myself has occurred to me . Never 12/23/2021 Comments Unknown Sex and Gender Information Value Date Recorded Sex Assigned at Not on file Legal Sex Female 3:22 AM MEMS ENGINEER Gender Identity Not on file Sexual Orientation Not on file documented as of this encounter Plan of Treatment Not on file documented as of this encounter Visit Diagnoses Not on filedocumented in this encounter Care Teams Hand Drawer In Helper Relationship Specialty [place] [address] [place] [facility] [place] [address] PCP - General 04/17/18 documented as of this encounter
--- OUTSIDE RECORDS SUMMARY | 2025-07-21 19:10 | XMS_ITS | Clinical Summary ---
Author Organization [facility] Address [address] [place] [address] Care Team Providers Care Business Technology Architect Name Role Phone Loulou Martin APRN, CNP Primary Care Provid er Source Comments You are receiving this document as you are listed as the primary care provider,follow-up provider, or the patient has been referred to you for consultation.This is in compliance with the Medicare andMedicaid EHR Incentive Program,which states Providers who transition their patient to another setting of careor provider of care or refers their patient to another provider of care shouldprovide summary care record for each transition of care or referral. [facility] Allergies Active Allergy Reactions Criticality Noted Date Comments Cefaclor Hives High 04/06/2003 HIVES: Hives, Tolerated ceftriaxone 04/23/20: ok to use 3rd generation cephalosporins or higher. Should have plenty of options in penicillin family for coverage. Ciprofloxacin Hives High 09/08/2006 Sulfa Antibiotics Hives High 04/06/2003 HIVES: Hives, Medications ALBUterol sulfate HFA (VENTOLIN HFA) 108 (90 Base) MCG/ACT inhalerIndication s:Reactive airway disease with acute exacerbation, unspecified asthma severity, unspecified whether persistent (HRC) Inhale 1-2 Puffs every 4 hours as needed for Wheezing. 1 Each 3 12/29/19 23 Active multivitamin (THERAGRAN) tablet Take 1 Tablet by mouth daily. Active levonorgestrel (MIRENA) 20 MCG/DAY IUDIndications:En counter for insertion of intrauterine contraceptive device 1 Each by Intrauterine route continuous. 04/29/20 23 031 Active sertraline (ZOLOFT) 50 MG tabletIndications :PATRICIA (generalized anxiety disorder) (HRC),Major depression in remission (HRC) Take 1 Tablet (50 mg) by mouth daily. 90 Tablet 3 06/18/20 25 Active Active Problems Problem Noted Date Diagnosed Date IUD contraception 04/29/2023 Major depression in remission 12/22/2021 Former smoker 08/04/2021 Obesity, Class II, BMI 35-39.9 08/04/2021 Reactive airway disease 11/30/2016 Allergic rhinitis 10/01/2016 H/O ETOH abuse 08/18/2015 Overview (02/04/2018): Pt sober since November 2015. Inpatient therapy at [facility]. Living at [facility]. 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 Just got promoted to [employer]. PATRICIA (generalized anxiety disorder) 08/18/2015 Resolved Problems Problem Noted Date Diagnosed Date Resolved Date Sciatic nerve pain, right 01/04/2023 Back pain affecting , antepartum 12/10/2022 04/05/2023 High-risk 07/27/2022 04/29/20 23 History of delivery, currently 07/27/2022 04/05/2023 Glucose intolerance of 12/17/2021 07/27/2022 High risk , antepartum 08/04/2021 07/27/2022 Overview (11/07/2021): MFM recommendations: -Continue low-dose aspirin daily for preeclampsia risk reduction -Follow up ultrasound with MFM at 28 weeks to monitor growth and finish the anatomic survey (ordered, please cancel Radiology growth ultrasound) -Anticipate growth ultrasound at 34 weeks -Continue routine care with primary OB provider Antepartum multigravida of a dvanced maternal age 1108/04/2021 04/05/2023 Overview (11/02/2022): -Follow up ultrasound with MFM at 28 weeks to monitor growth and finish the anatomic survey (ordered) -Anticipate growth ultrasound at 34 weeks (ordered) -Consider weekly testing starting at 37 weeks for pregravid BMI>35 as suggested by ACOG (can be performed by OB/Radiology) Need for rhogam due to Rh negative mother 08/04/2021 07/27/2022 Tobacco use 10/18/2020 08/04/2021 Anxiety 08/18/2015 01/10/2016 Alcoholism 05/20/2015 01/10/2016 Overview (04/12/2016): Admitted to [facility] for EtOH for detox Alcoholic ketoacidosis 05/20/201510/01 Oral contraceptive pill surveillance 03/16/2015 08/04/2021 Adjustment disorder with anxiety 06/03/2013 01/10/2016 Acute pharyngitis 02/14/2007 05/15/2016 Acute sinusitis 02/14/2007 01/25/2016 Overview (06/09/2015): [facility] Sprain of medial collateral ligament of knee 5 09/18/2018 Overview (04/06/2009): Comment: right Abdominal pain 06/05/2005 05/15/2016 Overview (06/09/2015): [facility] Encounters Date Type Department Care Team Description 06/30/2025 E-Visit Specialty Center [address] [place] [address] Mychart, Generic Provider 06/23/2025 E-Visit Dedicated Specialty Scheduling [address] [place] [address] Mychart, Generic Provider 06/22/2025 Notes/Orders [facility] [address] [place] [address] Loulou Martin, FOOT DOCTOR, BLUE CRABBER SREEKANTH (obstructive sleep apnea) (Primary Dx) 06/18/2025 10:00 AM CDT Lab Visit [facility] [address] [place] [address] Encounter for screening for lipoid disorders; Screening for diabetes mellitus; Screening, anemia, deficiency, iron 06/18/2025 9:20 AM CDT Office Visit [address] [address] Loulou Martin APRN, CNP Well woman exam with routine gynecological exam [...] episode of apnea; Pain of right forearm 06/18/2025 Results Follow-Up [address] [address] Loulou Martin APRN, CNP 04/20/[address] [address] Loulou Martin APRN, CNP Refill (sertraline (ZOLOFT) 50 MG tablet [Pharmacy Med Name: SERTRALINE 50MG TABLETS]) from Last 3 Months Immunizations Immunization Administration Dates Next Due 4vHPV (Gardasil) 01/10/2009,07/01/2008, 8 DT Ped 11/01/1997 DTP 06/20/1990, 7,01/26/1986,1985,1985 Flu Vac Preserv Free (3+yrs) 07/01/2008,10/26/19 07,09/21/2005 HepB Adult (Engerix-B, 20+ y rs, 3 dose series) 07/05/2017,04/15/2000 HepB Ped/Adol (0-18 yrs) 04/15/2000,01/26/2000 Influenza (Flucelvax) 06/11/2023,06/14/2022 Influenza IIV4 (Quadrivalent ) 0.5mL (32481) 08/07/2021,05/19/2020,11/02/2019,2018,07/05/2017,11/30/2016 Influenza ccIIV3 6 months+ (Flucelvax) 06/18/2025 Influenza, Unspecified Formulation 07/01/2008,,09/21/2005 MMR 11/01/1997,11/16/1986 MPSV4 (Menomune) 05/02/2004 OPV, Trivalent (Orimune or tOPV) 990,02/15/1987,01/26/1986,1985,1985 PCV20 (Wobcwpx06) 06/18/2025 PPSV23 (Pneumovax) 05/19/2020 Pfizer Monovalent 12+ Purple Top 09/13/2021,01/07,12/27/2020 Rho(D) - IG, IM 12/10/2022,12/15/2021 TDAP (BOOSTRIX) 03/30/2012,04/08/2009 Td 11/01/1997 Tdap 12/10/2022 Family History Medical History Relation Name Comments Stroke Father Lazaro Hensley Adopted Mother Alesha Mckeon Diabetes Mother Alesha Mckeon High Cholesterol Mother Alesha Mckeon Stroke Maternal Grandfather Grandma Diabetes Maternal Grandmother Maryjo Hensley Stroke Maternal Grandmother Maryjo Hensley Stroke Paternal Grandfather Grandfather Relation Name Status Comments Father Lazaro Hensley Alive Mother Alesha Mckeon Alive Maternal Grandfather Grandma Maternal Grandmother Maryjo Hensley Paternal Grandfather Grandfather Paternal Grandmother Social History Tobacco Use Types Packs/Day Years [...] any time in the past 12 m [facility], were you homeless or living in a halfway (including now)? 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 Not on file N ot on file [employer] Not on file Not on file Not on file Last Filed Vital Signs Vital Sign Reading Time Taken Comments Blood Pressure 121/85 06/18/2025 9:08 AM CDT Pulse 74 06/18/2025 9:08 AM CDT Temperature 36.8 C (98.2 F) 01/28/2025 3:50 PM CDT Respiratory Rate 18 01/28/2025 3:50 PM CDT Oxygen Saturation 97% 01/28/2025 3:50 PM CDT Inhaled Oxygen Concentration - - Weight 112.4 kg (247 lb 12.8 oz) 06/18/2025 8:58 AM CDT Height 170.2 cm (5' 7) 06/18/2025 8:58 AM CDT Body Mass Index 38.81 06/18/2025 8:58 AM CDT Plan of Treatment Upcoming Encounters Date Type Department Care Team (Late st Contact Info) Description 08/23/2025 6:00 PM SECURITY SHIFT SUPERVISOR Appointment Specialty Center [address] [place] [address] 09/06/2025 7:40 AM SECURITY SHIFT SUPERVISOR Appointment [facility] M[facility] at [facility] and [facility]ty Center [address] [place] [address] 09/07/2025 9:00 AM SECURITY SHIFT SUPERVISOR Telemedicine Specialty Center [facility] [address] [place] [address] Yamileth Livingston MBBS [address] [place] [address] [address] [place] [address] 06/24/2026 7:20 AM CDT Appointment [facility] [address] [place] [phone] Loulou Martin, FOOT DOCTOR, BLUE CRABBER [address] [place], [place] [address] Health Maintenance Due Date Last Done Comments Mammogram 1985 COVID-19 Vaccine ( season) 2025 09/13/2021, 01/17/2021, 12/27/2020 Asthma ACT (score of 20 or higher) 06/18/2026 06/18/2025, 06/14/2025, 05/26/2024, Additional history exists Adult Preventive Visit 06/18/2027 , 10/18/2020, 10/15/2019, Additional history exists Diabetes Screening- (based on age and BMI) 06/18/2028 06/18/2025, 07/27/2022, 08/04/2021, Additional history exists Cervical Cancer Screening 06/18/20302024, 10/18/2020, 10/18/2020, Additional history exists DTaP/Tdap/Td Vaccine (11 - Tdap) 12/10/2032 12/10/2022, 03/30/2012, 04/08/2009, Additional history exists Zoster/Shingles Vaccine (1 of 2) 2035 IPV (Polio) Vaccine Completed 06/20/1990, 02/15/1987, 01/26/1986, Additional history exists MCV4 Vaccine Aged Out 05/02/2004 No longer eligi ble based on patient's age to complete this topic HPV Vaccine Completed 01/10/2009, 06/10, 04/29/2008 HepB Vaccine Completed 07/05/2017, 03/2000, 04/15/2000, Additional history exists HIV Screening (Preventive Services) Completed 07/27/2022, 08/04/2021, 01/10/2016, Additional history exists Hep C Screening (Preventive Services) Completed 07/27/2022, 08/04/2021, 01/10/2016, Additional history exists Influenza Vaccine Completed 06/18/2025, , 06/14/2022, Additional history exists Pneumococcal Vaccine Completed 06/18/2025, 05/19/20 HepA Vaccine Aged Out No longer eligi ble based on patient's age to complete this topic Hib Vaccine Aged Out No longer eligi ble based on patient's age to complete this topic Meningococcal B Vaccine Aged Out No l onger eligible based on patient's age to complete this topic Procedures Procedure Name Priority Date/Time Associated Diagnosis Comments HEMOGLOBIN, BLOOD Routine 06/18/2025 10: 09 AM CDT Screening, anemia, deficiency, iron GLUCOSE Routine 06/18/2025 10:09 AM CDT Screening for diabetes mellitus LIPID PANEL & DIRECT LDL (IF NEEDED) Routine 06/18/2025 10:09 AM CDT Encounter for screening for lipoid disorders HPV WITH 16 18 GENOTYPING, CERVICAL/ENDOCERVI JENNIFER Routine 06/18/2025 9:57 AM CDT Special screening examination for human papillomavirus (HPV) HGB A1C Routine 07/27/2022 9:22 AM SECURITY SHIFT SUPERVISOR High risk , antepartum HIV 1/2 AG/AB 4TH GEN Routine 07/27/2022 9:22 AM SECURITY SHIFT SUPERVISOR High risk , antepartum HEPATITIS C ANTIBODY, WITH REFLEX (ANTI-HCV) Routine 07/27/2022 9:22 AM SECURITY SHIFT SUPERVISOR High risk , antepartum from Last 3 Months or Most Recently Relevant to Health Maintenance Results * Lipid Panel & Direct LDL (if Needed) (06/18/2025 10:09 AM CDT) Cholesterol 178 0 - 199 mg/dL 06/18/2025 12:32 PM T [facility] Triglyceride 130 <=149 mg/dL 06/18/2025 12:32 PM T [facility] HDL Cholesterol 48 >=40 mg/dL 12:32 PM T [facility] LDL, Calculated 104 <130 mg/dL 12:32 PM [facility] Non HDL Chol, Calculated 130 <=159 mg/dL 06/18/2025 12:32 PM [facility] Cholesterol/HDL Ratio 3.7 <=5.0 06/18/2025 12:32 PM [facility] Hours Fasting 12.0 8 - 12 Hours 06/18/2025 12:32 PM [facility] Blood Venipuncture / Unknown 06/18/2025 10:09 AM CDT 06/18/2025 10:09 AM CDT us Loulou Martin FOOT DOCTOR, BLUE CRABBER LAB_1 Sangeeta l Result [facility] CLIA: [id number] [address] [place] [address] * Hemoglobin, Blood (06/18/2025 10:09 AM CDT) Hemoglobin 14.2 12.0 - 15.5 g/dL 06/18/2025 10:12 AM CDT [facility] Blood Venipuncture / Unknown 06/18/2025 10:09 AM CDT 06/18/2025 10:09 AM CDT Loulou Martin APRN, CAYETANO LAB_1 Sangeeta l Result Performing Organization Address [facility] de Phone Number [facility] CLIA: [id number] [address] [place] [address] * Glucose (06/18/2025 10:09 AM CDT) Glucose 81 70 - 100 mg/dL 06/18/2025 12:32 PM CDT [facility] Comment:The given reference range is for the fasting state. Non-fasting reference range for glucose is 70 - 180 mg/dL. Hours Fasting 12.0 8 - 12 Hours 06/18/2025 12:32 PM T [facility] Blood Venipuncture / Unknown 06/18/2025 10:09 AM CDT 06/18/2025 10:09 AM CDT Loulou Martin APRN, CNP LAB_1 Sangeeta l Result Performing Organization Address [facility] de Phone Number [facility] CLIA: [id number] [address] [place], [place] [id number] * HPV Genotyping PCR (Cervical/Endocervical ONLY) with Reflex Cytology (Pap) if Indicated (59:57 AM CDT) HPV High Risk Type 16 PCR Not Detected Not detected 06/22/2025 2:13 PM T [facility] HPV High Risk Type 18 PCR Not Detected Not Detected 06/22/2025 2:13 PM T [facility] HPV High Risk Other Than 16/18 Not Detected Not detected 06/22/2025 2:13 PM T [facility] Cervical Broom ENTIRE ENDOCERVIX / Unknown 06/18/2025 9:57 AM CDT 06/18/2025 1:14 PM CDT [facility] - 06/22/2025 2:13 PM [...] 52, 56, 58, 59, 66, and 68). Loulou Martin APRN, BLUE CRABBER LAB_1 Sangeeta l Result Performing Organization Address City/[facility]/ZIP Co de Phone Number [facility] CLIA: [id number] [address] [place] [address] * HIV 1/2 Ag/Ab 4th Generation (07/27/2022 9:22 AM SECURITY SHIFT SUPERVISOR) HIV 1/2 Antigen/Antib kenneth (4th generation) Negative (Non Reactive) Negative (Non Reactive) 07/27/2022 5:46 PM SECURITY SHIFT SUPERVISOR [facility] Comment:HIV-1 p24 Antigen an d HIV-1/HIV-2 Antibody not detected Blood Venipuncture / Unknown 07/27/2022 9:22 AM SECURITY SHIFT SUPERVISOR 07/27/2022 9:23 AM SECURITY SHIFT SUPERVISOR Josselyn Harvey APRN, CN LAB_1 Final Result [facility] [address] [place] [address] * Hepatitis C Antibody, with Reflex (07/27/2022 9:22 AM SECURITY SHIFT SUPERVISOR) Hepatitis C Antibody Negative (Non Reactive) Negative (Non Reactive) 07/27/2022 5:46 PM SECURITY SHIFT SUPERVISOR [facility] Comment:Antibodies to HCV no t detected. Does not exclude the possiblity of exposure to HCV. Blood Venipuncture / Unknown 07/27/2022 9:22 AM SECURITY SHIFT SUPERVISOR 07/27/2022 9:23 AM SECURITY SHIFT SUPERVISOR us Josselyn Harvey APRN, LEROY LAB_1 Final Result [facility] [address] [place], [place] [address] * Hgb A1C (07/27/2022 9:22 AM SECURITY SHIFT SUPERVISOR) Hemoglobin A1C 5.3 <=5.6 % 07/27/2022 6:33 PM SECURITY SHIFT SUPERVISOR [facility] Blood Venipuncture / Unknown 07/27/2022 9:22 AM SECURITY SHIFT SUPERVISOR 07/27/2022 9:23 AM SECURITY SHIFT SUPERVISOR Josselyn Harvey APRN, LEROY LAB_1 Final Result Performing Organization Address City/[facility]/ZIP Co de Phone Number [facility] [address] [phone] from Last 3 Months or Most Recently Relevant to Health Maintenance Insurance [facility] [address] [place] [address] [facility] [address] [facility] [address] Care Teams Business Technology Architect Relationship Specialty Start Date End Date Loulou Martin, FOOT DOCTOR, BLUE CRABBER [address] [place] [facility] [address] PCP - General Nurse Practitioner 10/31/16
--- OUTSIDE RECORDS SUMMARY | 2025-07-21 19:10 | XMS_ITS | Encounter Summary ---
Author Organization [facility] Address [address] [place] [address] Care Team Providers Care Product Support Technician Name Role Phone Loulou Martin APRN, CAYETANO Primary Care Provid er Encounter Details Date Type Department Care Team (Late st Contact Info) Description 06/23/2025 E-Visit Dedicated Specialty Scheduling [address] [place] [address] Mycsreet, [place] [address] Social History Tobacco Use Types Packs/Day Years [...] any time in the past 12 m [facility], were you homeless or living in a intermediate (including now)? 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 on file N ot on file [employer] Not on file Not on file Not on file documented as of this encounter Plan of Treatment Upcoming Encounters Date Type Department Care Team (Late st Contact Info) Description 08/23/2025 6:00 PM PRECAST MOLDER Appointment Specialty Center [facility] Sleep Lab Beds [address] [place] [address] 09/06/2025 7:40 AM PRECAST MOLDER Appointment [facility] Mammography at [facility] and Specialty Center [place] [address] [address] [place] [address] 09/07/2025 9:00 AM PRECAST MOLDER Telemedicine Specialty Center [facility] Pulmonary Medicine [address] [place] [address] Yamileth Livingston MBBS [address] [place] [address] [address] [place] [address] 06/24/2026 7:20 AM CDT Appointment [facility] [address] [place] [address] Loulou Martin APRN, CAYETANO [address] [place] [facility] [phone] documented as of this encounter Visit Diagnoses Not on filedocumented in this encounter Care Teams Product Support Technician Relationship Specialty Start Date End Date Loulou Martin APRN, DATA VIRTUALIZATION CONSULTANT [address] [place] [facility] [address] PCP - General Nurse Practitioner 10/31/16 documented as of this encounter
[2025-07-21 19:19] VITALS: BP 153/110; PULSE 78; RESP 16; TEMP 36.7; O2SAT 98; BMI 42.9
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
== END 2025-07-21 21:52 | disposition home or self-care (01) ==
PROVIDERS: Emergency Provider Emergency Medicine; PCP Obstetrics & Gynecology
DX: R51.9 Headache, unspecified (principal); F07.81 Postconcussional syndrome; V43.52XA Car driver injured in collision with other type car in traffic accident, initial encounter
CPT/HCPCS: 70450; 99284; 99285